=== PATIENT | female | born 1940 | race Caucasian/White ===

== ENCOUNTER 2020-09-08 07:51 | Emergency (ER) | payer MEDICARE ==
[~2020-09-08] VITALS: Ht 152.4 cm; Wt 81.0 kg
[2020-09-08 08:48] LABS: BASOPHIL 0.6 % (0-2); EOSINOPHIL 0.3 % (0-7); HCT 42.2 % (37.0-47.0); HGB 14.2 g/dl (12.5-16.0); LYMPHOCYTE 6.1 % (15-48); MCH 29.6 pg (25.0-31.0); MCHC 33.6 g/dL (32.0-36.0); MCV 87.9 fL (78.0-100.0); MONOCYTE 5.5 % (0-12); MPV 9.5 fL (6.0-9.5); NEUTROPHIL 82.5 % (41-80); PLT 318 K/uL (150-400); RDW 13.9 % (11.5-14.0); WBC 18.2 K/uL (4.0-10.5)
[2020-09-08 08:56] LABS: NRBC 0
[2020-09-08 09:03] LABS: BILIRUBIN - TOTAL 0.6 mg/dL (0.2-1.0); BUN/CREAT RATIO (CALC) 19.1 RATIO; CREATININE 0.68 mg/dL (0.51-0.95); GLOBULIN (CALCULATION) 5.7 g/dL; POTASSIUM 3.5 mmol/L (3.5-5.1); TOTAL PROTEIN 7.7 g/dL (6.4-8.2)
[2020-09-08 09:08] LABS: BILIRUBIN 1+ mg/dL (NEGATIVE); BLOOD 1+ Ery/uL (NEGATIVE); CLARITY CLEAR (CLEAR); GLUCOSE (U) NORMAL (NORMAL); LEUKOCYTES NEGATIVE Leu/uL (NEGATIVE); NITRITE POSITIVE (NEGATIVE); PROTEIN 2+ mg/dL (NEGATIVE); SPECIFIC GRAVITY 1.025 (1.001-1.030)
[2020-09-08 09:10] LABS: COLOR AMBER (YELLOW)
[2020-09-08 09:15] LABS: LACTIC ACID 1.6 mmol/L (0.4-1.9)
[2020-09-08 09:16] LABS: AMORPHOUS URATES CRYSTALS TRACE; BACTERIA TRACE; GRANULAR CASTS TRACE
[2020-09-08 10:39] LABS: INR 1.33 (0.9-1.2); PROTHROMBIN TIME 15.8 SECONDS (11.8-13.4)
[2020-09-08 10:40] LABS: PTT 33.8 SECONDS (24.4-34.7)
== END 2020-09-08 19:00 | disposition other institution (70) ==
LOC: FER 07:51
PROVIDERS: Emergency Medicine
DX: I81 Portal vein thrombosis (principal); R19.7 Diarrhea, unspecified; K21.9 Gastro-esophageal reflux disease without esophagitis; Z85.42 Personal history of malignant neoplasm of other parts of uterus; Z90.710 Acquired absence of both cervix and uterus; Z79.899 Other long term (current) drug therapy; Z20.822 Contact with and (suspected) exposure to COVID-19
CPT/HCPCS: 36415; 80053; 81001; 82150; 83605; 83690; 85025; 85610; 85730; 87040; J1644; J2270; J2405; J7030; Q9967; U0002